=== PATIENT | female | born 1970 | race Two or more races ===

== ENCOUNTER 2020-07-06 08:25 | Outpatient (CLI) | payer BC ==
[2020-07-06] MEDS ORDERED: COLLAGENASE 5 GM TUBE UD TP ONE (09:15)
[2020-07-06] MEDS ORDERED: LIDOCAINE 2% JEL 5 ML TUBE ONE (09:16)
== END 2020-07-06 23:59 | disposition home or self-care (01) ==
LOC: WOU 08:25
PROVIDERS: ATTEND Podiatrist Foot & Ankle Surgery
DX: L94.0 Localized scleroderma [morphea] (principal); L97.312 Non-pressure chronic ulcer of right ankle with fat layer exposed; I87.2 Venous insufficiency (chronic) (peripheral); R60.1 Generalized edema
CPT/HCPCS: 11042; 87070-TC; 87075-TC; 87186-TC

== ENCOUNTER 2020-07-14 13:00 | Outpatient (CLI) | payer BC ==
[2020-07-14] MEDS ORDERED: LIDOCAINE 2% JEL 5 ML TUBE ONE (13:39)
[2020-07-14] MEDS ORDERED: COLLAGENASE 5 GM TUBE UD TP ONE (14:13)
== END 2020-07-14 23:59 | disposition home or self-care (01) ==
LOC: WOU 13:00
PROVIDERS: ATTEND Podiatrist Foot & Ankle Surgery
DX: I87.2 Venous insufficiency (chronic) (peripheral) (principal); L97.312 Non-pressure chronic ulcer of right ankle with fat layer exposed; M35.00 Sjogren syndrome, unspecified; R60.1 Generalized edema
CPT/HCPCS: 11042

== ENCOUNTER 2020-07-21 13:00 | Outpatient (CLI) | payer BC ==
[2020-07-21] MEDS ORDERED: COLLAGENASE 5 GM TUBE UD TP ONE (13:58)
== END 2020-07-21 23:59 | disposition home or self-care (01) ==
LOC: WOU 13:00
PROVIDERS: ATTEND Podiatrist Foot & Ankle Surgery
DX: L94.0 Localized scleroderma [morphea] (principal); L97.312 Non-pressure chronic ulcer of right ankle with fat layer exposed; I87.2 Venous insufficiency (chronic) (peripheral); R60.1 Generalized edema
CPT/HCPCS: 11042

== ENCOUNTER → 2020-07-30 | Emergency (ER) | payer BC ==
[~2020-07-30] VITALS: Ht 160 cm; Wt 59.0 kg
[~2020-07-30] MED LIST: CT SWABBABLE VALVE TRANS SET 1 EA INFUS.SET MC ONE; IOHEXOL-300 100 ML VIAL IV ONE; IV NS 0.9% 250 ML IV ONE; MORPHINE SULFATE INJ 4 MG/ML DISP.SYRIN ONE; ONDANSETRON HCL/PF 4 MG/2 ML VIAL ONE
--- NOTE | 2020-07-30 10:16 | NUR ---
PT BIBRA FROM HOME C/O SUDDEN ONSET LOWER ABDOMINAL PAIN X 1 HOUR. ENDORSES NAUSEA AND VOMITING. [employer]. AWAITING MD CALI.
--- NOTE | 2020-07-30 10:18 | NUR ---
DR SARMIENTO IN TO SEE PT FOR EVAL.
[2020-07-30 11:09] LABS: BASOPHILS % (AUTO) 0.6 % (0.0-2.0); EOSINOPHILS % (AUTO) 3.8 % (0.0-6.0); HEMATOCRIT 33 % (33-45); LYMPHOCYTES # (AUTO) 0.8 /CMM (0.8-4.8); LYMPHOCYTES % (AUTO) 10.9 % (20.0-44.0); MEAN CORPUSCULAR HGB CONC 34 g/dl (31.0-36.0); MEAN CORPUSCULAR VOLUME 105 fL (82-100); MONOCYTES # (AUTO) 0.7 /CMM (0.1-1.30); MONOCYTES % (AUTO) 9.5 % (2.0-12.0); NEUTROPHILS # (AUTO) 5.3 /CMM (1.8-8.9); NEUTROPHILS % (AUTO) 75.2 % (43.0-81.0); PLATELET COUNT (AUTO) 217 /CMM (150-450); RED BLOOD CELL COUNT(AUTO) 3.13 MIL/uL (4.0-5.2); WHITE BLOOD COUNT (AUTO) 7.1 K/uL (4.3-11.0)
[2020-07-30] MEDS: IV NS 0.9% 1,000 ML BAG IV ONE (11:14)
[2020-07-30] MEDS: MORPHINE SULFATE INJ 2 MG/ML DISP.SYRIN IV ONE (11:15)
[2020-07-30] MEDS: ONDANSETRON HCL/PF 4 MG/2 ML VIAL IVP ONE (11:15)
[2020-07-30 11:16] LABS: CALCIUM, SERUM 8.6 mg/dL (8.5-10.1); CARBON DIOXIDE 27 mmol/L (21-32); CHLORIDE 104 mmol/L (98-107); CREATININE 1.1 mg/dL (0.6-1.3); GLUCOSE 113 mg/dL (74-106); POTASSIUM 4.2 mmol/L (3.5-5.1); SODIUM SERUM 139 mmol/L (136-145); UREA NITROGEN, BLOOD 13 mg/dL (7-18)
[2020-07-30 11:22] LABS: ALANINE AMINOTRANSFERASE 17 U/L (12-78); ALBUMIN 2.4 g/dL (3.4-5.0); ALKALINE PHOSPHATASE 106 U/L (46-116); ASPARTATE AMINOTRANSFERASE 34 U/L (15-37); BILIRUBIN,DIRECT 0.4 mg/dL (0.0-0.2); BILIRUBIN,TOTAL 0.9 mg/dL (0.2-1.0); LIPASE 485 U/L (73-393); TOTAL PROTEIN, SERUM 7.9 g/dL (6.4-8.2)
[2020-07-30] MEDS: CEFEPIME 1 GM in IV D5W 50 ML IV ONE (12:16)
[2020-07-30 12:26] LABS: BILIRUBIN,URINE Negative (NEGATIVE); COLOR,URINE YELLOW (YELLOW); LEUKOCYTE ESTERASE ,URINE Negative (NEGATIVE); NITRITE, URINE Negative (NEGATIVE); PROTEIN,URINE Negative (NEGATIVE); UGLUCOSE Negative (NEGATIVE); UROBILINOGEN,URINE 0.2 EU/dL (0.2)
--- NOTE | 2020-07-30 12:50 | NUR ---
PT TO RADIOLOGY FOR ABDOMINAL CT SCAN VIA W/C.
[2020-07-30] MEDS: VANCOMYCIN 1 GM in IV D5W 250 ML IV ONE (13:43)
[2020-07-30] MEDS: MORPHINE SULFATE INJ 10 MG/ML DISP.SYRIN IM ONE (13:58)
--- NOTE | 2020-07-30 14:45 | NUR ---
Patient does not wish to proceed with medical care recommended by Dr. Anna. Patient given information related to possible complications, up to and including , which could occur as a result of leaving the hospital at this time. Patient verbalizes understanding of risks involved due to leaving against medical advice. Patient has signed AMA form. IV removed. Catheter intact and site benign. Pressure and 4x4 applied to site. No bleeding noted.
[2020-07-30 14:46] VITALS: BP 132/86
== END | disposition left against medical advice (07) ==
LOC: ER 10:10
DX: R19.09 Other intra-abdominal and pelvic swelling, mass and lump (principal); R18.8 Other ascites; R94.8 Abnormal results of function studies of other organs and systems; M34.9 Systemic sclerosis, unspecified; I27.21 Secondary pulmonary arterial hypertension; Z88.0 Allergy status to penicillin; Z88.2 Allergy status to sulfonamides; R59.0 Localized enlarged lymph nodes; Z20.828 Contact with and (suspected) exposure to other viral communicable diseases
CPT/HCPCS: 36415; 74177; 80048; 80076; 81003; 83605 ×2; 83690; 84703; 85025; 87040 ×2; 87426; 96361; 96365; 96367; 96375; 99285; C9803; J0692; J2270; J2405; J3370; J7030; J7050; J7060; Q9967

== ENCOUNTER → 2020-08-11 | Outpatient (CLI) | payer BC ==
[~2020-08-11] MED LIST changes: +COLLAGENASE 5 GM TUBE UD TP ONE; -CT SWABBABLE VALVE TRANS SET 1 EA INFUS.SET MC ONE; -IOHEXOL-300 100 ML VIAL IV ONE; -IV NS 0.9% 250 ML IV ONE; -MORPHINE SULFATE INJ 4 MG/ML DISP.SYRIN ONE; -ONDANSETRON HCL/PF 4 MG/2 ML VIAL ONE
== END | disposition home or self-care (01) ==
LOC: WOU 14:30
PROVIDERS: ATTEND Podiatrist Foot & Ankle Surgery
DX: I87.2 Venous insufficiency (chronic) (peripheral) (principal); L97.312 Non-pressure chronic ulcer of right ankle with fat layer exposed; M35.00 Sjogren syndrome, unspecified; R60.1 Generalized edema
CPT/HCPCS: 11042

== ENCOUNTER 2020-08-18 14:55 | Outpatient (CLI) | payer BC ==
[2020-08-18] MEDS ORDERED: COLLAGENASE 5 GM TUBE UD TP ONE (15:12)
== END 2020-08-18 23:59 | disposition home or self-care (01) ==
LOC: WOU 14:55
PROVIDERS: ATTEND Podiatrist Foot & Ankle Surgery
DX: I87.2 Venous insufficiency (chronic) (peripheral) (principal); L97.312 Non-pressure chronic ulcer of right ankle with fat layer exposed; M35.00 Sjogren syndrome, unspecified; R60.1 Generalized edema
CPT/HCPCS: 11042